=== PATIENT | female | born 1985 | race Caucasian/White ===

== ENCOUNTER 2018-09-15 13:45 | Emergency (ER) | payer BC, SELFPAY ==
[2018-09-15 14:45] LABS: Absolute Lymphocytes (CBC) 2.5 K/uL (0.7-4.9); Basophils % 1.1 % (0-1.3); Lymphocytes % 34.3 % (15.3-44.8); MPV 7.7 fL (7.6-11.3); RBC Red Blood Cell Count 4.76 M/uL (3.86-4.86)
[2018-09-15 15:06] LABS: Urine Specific Gravity 1.015 (1.005-1.030)
[2018-09-15 15:06] LABS: BUN Blood Urea Nitrogen 11 mg/dL (7-18); Bicarbonate 26 mmol/L (21-32); Glucose Level 83 mg/dL (74-106); HCG, Quantitative 51 mIU/mL (1-3); Potassium 3.9 mmol/L (3.5-5.1); Sodium Level 146 mmol/L (136-145)
[2018-09-15 15:41] LABS: Urine Bacteria 20-50 /HPF (<20); Urine Culture Reflex Order REFLEXED
--- NOTE | 2018-09-15 16:30 | RAD REPORT ---
EXAM DESCRIPTION: US - Transvaginal OB - 09/15/2018 4:15 pm CLINICAL HISTORY: Vaginal bleeding, beta HCG 51 Preliminary findings provided at the time of the study. COMPARISON: None. FINDINGS: Endovaginal and transabdominal sonography performed. No intrauterine gestational sac or sac remnant identifiable. Endometrial stripe is 15 mm. No endometr ial mass or polyp. Ovaries are identifiable and normal in size. Doppler evaluation shows blood flow within the ovarian s troma. No ovarian or adnexal mass. IMPRESSION: No intrauterine gestational sac or sac remnant. Endometrium is thickened but no mass or hematoma seen. No adnexal abnormalities.
--- NOTE | 2018-09-15 16:41 | ER ---
Nurse's Notes [facility] Name: Fe Pollack Age: 32 yrs Sex: Female : 1985 Arrival Date: 09/15/2018 Time: 13:47 Bed 28 Private MD: Diagnosis: Early vs Presentation: 09/15 13:54 Presenting complaint: Patient states: LMP- 06/11/18; didn't have appt with OB yet, i hj started bleeding from my vagina last , light, at first and it turned dark red; reports pain 2/10; denies N/V;. Transition of care: patient was not received from another setting of care. Onset of symptoms was September 15, 2018. Risk Assessment: Do you want to hurt yourself or someone else? Patient reports no desire to harm self or others. Initial Sepsis Screen: Does the patient meet any 2 criteria? No. Patient's initial sepsis screen is negative. Does the patient have a suspected source of infection? No. Patient's initial sepsis screen is negative. Care prior to arrival: None. 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 - Family history:: not pertinent. - Social history:: Smoking status: Patient/guardian denies using tobacco. - Ebola Screening: : Patient negative for fever greater than or equal to 101.5 degrees Fahrenheit, and additional compatible Ebola Virus Disease symptoms Patient denies exposure to infectious person Patient denies travel to an Ebola-affected area in the 21 days before illness onset No symptoms or risks identified at this time. - Hospitalizations: : No recent hospitalization is reported. Screenin:10 Abuse screen: Denies threats or abuse. Denies injuries from another. Nutritional ca1 screening: No deficits noted. Tuberculosis screening: No symptoms or risk factors identified. Fall Risk IV access (20 points). Assessment: 14:10 General: Appears in no apparent distress. comfortable, Behavior is calm, cooperative, ca1 appropriate for age. Pain: Denies pain. Neuro: Level of Consciousness is awake, alert, obeys commands, Oriented to person, place, time, situation. Cardiovascular: Heart tones S1 S2 present Capillary refill < 3 seconds Patient's skin is warm and dry. Respiratory: Airway is patent Respiratory effort is even, unlabored, Respiratory pattern is regular, symmetrical, Breath sounds are clear bilaterally. GI: Abdomen is round non-distended, Bowel sounds present X 4 quads. Abd is soft and non tender X 4 quads. : Reports vaginal bleeding that is spotty, since 4 days ago. : Urine is clear. EENT: No deficits noted. No signs and/or symptoms were reported regarding the EENT system. Derm: Skin is intact, is healthy with good turgor, Skin is pink, warm \T\ dry. Musculoskeletal: Circulation, motion, and sensation intact. Capillary refill < 3 seconds, Range of motion: intact in all extremities. 15:12 Reassessment: Patient appears in no apparent distress at this time. Patient and/or ca1 family updated on plan of care and expected duration. Pain level reassessed. Patient is alert, oriented x 3, equal unlabored respirations, skin warm/dry/pink. 16:35 Reassessment: Patient appears in no apparent distress at this time. Patient is alert, ca1 oriented x 3, equal unlabored respirations, skin warm/dry/pink. Vital Signs: 13:57 BP 134 / 83; Pulse 75; Resp 18; Temp 98.4(O); Pulse Ox 98% on R/A; Weight 117.93 kg; Height 5 ft. 2 in. (157.48 cm); Pain 2/10; 15:12 BP 113 / 77; Pulse 90; Resp 15 S; Pulse Ox 97% ; ca1 16:35 BP 121 / 76; Pulse 86; Pulse Ox 16% on R/A; ca1 13:57 Body Mass Index 47.55 (117.93 kg, 157.48 cm) ED Course: 13:47 Patient arrived in ED. mr 13:56 Triage completed. 13:56 Arm band placed on right wrist. 14:03 Patrick Daly MD is Attending Physician. rn 14:10 Patient has correct armband on for positive identification. Bed in low position. Call ca1 light in reach. Side rails up X 1. Pulse ox on. NIBP on. Warm blanket given. 14:25 Codie Navarrete, RN is Primary Nurse. ca1 14:33 Inserted saline lock: 22 gauge in left antecubital area, using aseptic technique. Blood ca1 collected. 16:13 Ultrasound completed. Patient tolerated well. sg3 16:15 US Transvaginal Ob In Process Unspecified. EDMS 16:52 No provider procedures requiring assistance completed. IV discontinued, intact, ca1 bleeding controlled, No redness/swelling at site. Pressure dressing applied. Administered Medications: No medications were administered Outcome: 16:40 Discharge ordered by MD. rn 16:52 Discharged to home ambulatory, with significant other. ca1 16:52 Condition: stable 16:52 Discharge instructions given to patient, Instructed on discharge instructions, follow up and referral plans. medication usage, Demonstrated understanding of instructions, follow-up care, medications, Prescriptions given X 1. 16:54 Patient left the ED. ca1 Signatures: Dispatcher [employer] EDIN Jackson Emerald Patrick Buitrago MD MD rn Joaquin, Henry, RN RN hj Godinez, Sarah sg3 Codie Navarrete, TELLO RN ca1 Corrections: (The following items were deleted from the chart) 13:58 13:57 Pulse 75bpm; Resp 18bpm; Pulse Ox 98% RA; Temp 98.4F Oral; 117.93 kg; Height 5 hj ft. 2 in.; BMI: 47.5; Pain 2/10; hj
--- NOTE | 2018-09-15 16:42 | EDPHYS ---
Physician Documentation [facility] Name: Fe Pollack Age: 32 yrs Sex: Female : 1985 Arrival Date: 09/15/2018 Time: 13:47 Bed 28 Private MD: ED Physician Patrick Daly HPI: 09/15 14:11 This 32 yrs old Female presents to ER via Ambulatory with complaints of rn Vaginal Bleeding, + Preg <12wks. 14:11 The patient presents to the emergency department with vaginal bleeding, that is light, rn described as spotting. course: care: none, Ultrasound: the patient has not had an ultrasound. Previous pregnancies: in previous pregnancies patient has had. The patient has experienced a previous episode. presents with vaginal bleeding/spotting, began a few days ago, no clots, improving, mild abd cramps, no fever/trauma/discharge. Reports LMP 06/11 but has PCOS and very irregular. . 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 - Family history:: not pertinent. - Social history:: Smoking status: Patient/guardian denies using tobacco. - Ebola Screening: : Patient negative for fever greater than or equal to 101.5 degrees Fahrenheit, and additional compatible Ebola Virus Disease symptoms Patient denies exposure to infectious person Patient denies travel to an Ebola-affected area in the 21 days before illness onset No symptoms or risks identified at this time. - Hospitalizations: : No recent hospitalization is reported. ROS: 14:11 Constitutional: Negative for fever, chills, and weight loss, Cardiovascular: Negative rn for chest pain, palpitations, and edema, Respiratory: Negative for shortness of breath, cough, wheezing, and pleuritic chest pain, Abdomen/GI: + abd cramping Back: Negative for injury and pain, : + vaginal bleeding MS/Extremity: Negative for injury and deformity, Neuro: Negative for headache, weakness, numbness, tingling, and seizure. Exam: 14:11 Constitutional: This is a well developed, well nourished patient who is awake, alert, rn and in no acute distress. Eyes: normal conjunctivae Respiratory: No increased work of breathing, no retractions or nasal flaring. Abdomen/GI: soft, non-tender, no guarding Neuro: Awake and alert, GCS 15, oriented to person, place, time, and situation. Cranial nerves II-XII grossly intact. Motor strength 5/5 in all extremities. Sensory grossly intact. Cerebellar exam normal. Normal gait. Vital Signs: 13:57 BP 134 / 83; Pulse 75; Resp 18; Temp 98.4(O); Pulse Ox 98% on R/A; Weight 117.93 kg; hj Height 5 ft. 2 in. (157.48 cm); Pain 2/10; 15:12 BP 113 / 77; Pulse 90; Resp 15 S; Pulse Ox 97% ; ca1 16:35 BP 121 / 76; Pulse 86; Pulse Ox 16% on R/A; ca1 13:57 Body Mass Index 47.55 (117.93 kg, 157.48 cm) MDM: 14:03 Patient medically screened. rn 16:34 Differential diagnosis: ectopic , early IUP. Data reviewed: vital signs, rn nurses notes, lab test result(s), radiologic studies, ultrasound, and as a result, I will discharge patient. Counseling: I had a detailed discussion with the patient and/or guardian regarding: the historical points, exam findings, and any diagnostic results supporting the discharge/admit diagnosis, lab results, radiology results, the need for outpatient follow up, to return to the emergency department if symptoms worsen or persist or if there are any questions or concerns that arise at home. Special discussion: I discussed with the patient/guardian in detail that at this point there is no indication for admission to the hospital. It is understood, however, that if the symptoms persist or worsen the patient needs to return immediately for re-evaluation. Based on the history and exam findings, there is no indication for further emergent testing or inpatient evaluation. I discussed with the patient/guardian the need to see the OB Gyne specialist for further evaluation of the symptoms. ED course: Too early to tell which way this is going to go, no IUP visualized, HCG 51, recommended outpt repeat hcg and u/s in 48 hours to trend and f/u with OB.. 09/15 14:11 Order name: Quantitative Hcg; Complete Time: 16:16 rn 09/15 14:11 Order name: Abo/rh Typing; Complete Time: 16:16 rn 09/15 14:11 Order name: Basic Metabolic Panel; Complete Time: 16:16 rn 09/15 14:11 Order name: CBC with Diff; Complete Time: 15:02 rn 09/15 14:11 Order name: Urine Microscopic Only; Complete Time: 16:16 rn 09/15 14:43 Order name: Urine --Ancillary (enter results); Complete Time: 16:16 bd 09/15 14:11 Order name: Urine Test (obtain specimen); Complete Time: 14:41 rn 09/15 14:11 Order name: IV Saline Lock; Complete Time: 14:41 rn 09/15 14:11 Order name: Labs collected and sent; Complete Time: 14:41 rn 09/15 14:11 Order name: NPO; Complete Time: 14:41 rn 09/15 14:11 Order name: Urine Dipstick-Ancillary (obtain specimen); Complete Time: 14:41 rn 09/15 14:30 Order name: US Transvaginal Ob; Complete Time: 16:34 rn 09/15 15:42 Order name: Urine Culture EDMS Administered Medications: No medications were administered Disposition: 09/15/18 16:40 Discharged to Home. Impression: Early vs . - Condition is Stable. - Discharge Instructions: Threatened Miscarriage, First Trimester of . - Prescriptions for Macrobid 100 mg Oral Capsule - take 1 capsule by ORAL route every 12 hours for 7 days; 14 capsule. - Medication Reconciliation Form, Thank You Letter, Antibiotic Education, Prescription Opioid Use form. - Follow up: Private Physician; When: As needed; Reason: Recheck today's complaints, Re-evaluation by your physician. - Problem is new. - Symptoms have improved. Signatures: Dispatcher [employer] EDMS Patrick Daly MD MD rn Joaquin, Henry, RN RN hj Acob, Cheryl, RN RN ca1 Corrections: (The following items were deleted from the chart) 16:54 16:40 09/15/2018 16:40 Discharged to Home. Impression: Early vs . ca1 Condition is Stable. Forms are Medication Reconciliation Form, Thank You Letter, Antibiotic Education, Prescription Opioid Use. Follow up: Private Physician; When: As needed; Reason: Recheck today's complaints, Re-evaluation by your physician. Problem is new. Symptoms have improved. rn
== END 2018-09-15 16:54 | disposition home or self-care (01) ==
LOC: ER 13:45
DX: O20.9 Hemorrhage in early pregnancy, unspecified (principal); Z3A.00 Weeks of gestation of pregnancy not specified
CPT/HCPCS: 36415; 76817; 80048; 81015; 81025; 84702; 85025; 86900; 86901; 87086; 87088; 99284